=== PATIENT | male | born 1985 | race African-American/Black ===

== ENCOUNTER 2017-04-23 18:35 | Emergency (ER) | payer SELFPAY ==
[~2017-04-23] VITALS: Ht 172.7 cm; Wt 86.4 kg
[2017-04-23] MEDS ORDERED: LIDOCAINE HCL 1% 10 ML VIAL INJ ONE (19:00)
[2017-04-23] MEDS ORDERED: HYDROCODONE/ACETAMINOPHEN 5-325 MG TABLET PO ONE ×2 (20:00→20:45)
[2017-04-23 20:53] VITALS: BP 133/70
== END 2017-04-23 20:55 | disposition home or self-care (01) ==
LOC: EMS 18:37
DX: S01.81XA Laceration without foreign body of other part of head, initial encounter (principal); V43.52XA Car driver injured in collision with other type car in traffic accident, initial encounter; Y93.89 Activity, other specified; Y92.89 Other specified places as the place of occurrence of the external cause; Y99.8 Other external cause status
CPT/HCPCS: 12013; 70450; 72125; 99284; J3490